=== PATIENT | female | born 1995 | race African-American/Black ===

== ENCOUNTER 2021-09-17 09:27 | Emergency (ER) | payer MEDICAID ==
[~2021-09-17] VITALS: Ht 175.3 cm; Wt 109.0 kg
[2021-09-17 10:23] LABS: EOSINOPHILS % 2.3 % (0.0-5.0); HEMOGLOBIN. 12.9 g/dL (12.0-16.0); LYMPHOCYTES % 32.7 % (20.0-50.0); MEAN CORPUSCULAR HEMOGLOBIN 28.2 pg (28.0-32.0); MEAN PLATELET VOLUME 8.1 fl (7.4-10.4); MONOCYTES % 8.4 % (2.0-8.0); NEUTROPHILS % 55.6 % (40.0-76.0); PLATELET 291 x1000/uL (130-400); RED BLOOD CELL COUNT 4.58 mill/uL (4.2-5.4); RED CELL DISTRIBUTION WIDTH 13.9 % (11.6-14.6)
[2021-09-17 10:29] LABS: CHLORIDE 108 mEq/L (98-107)
[2021-09-17 10:37] LABS: ETHANOL BLOOD < 10 mg/dL
[2021-09-17 10:56] LABS: HCG SCREEN NEGATIVE
[2021-09-17 12:01] LABS: CLARITY URINE CLEAR (CLEAR); COLOR URINE YELLOW (YELLOW); KETONES URINE NEGATIVE (NEGATIVE); LEUKOCYTE ESTERASE URINE NEGATIVE (NEGATIVE); NITRITE URINE NEGATIVE (NEGATIVE); OCCULT BLOOD URINE NEGATIVE (NEGATIVE); PH URINE 7.5 (4.5-8.0); PROTEIN URINE NEGATIVE (NEGATIVE); SPECIFIC GRAVITY URINE 1.005 (1.005-1.030); UROBILINOGEN URINE 0.2 E.U./dL (0.2-1.0)
[2021-09-17 12:16] LABS: *AMPHETAMINES SCREEN URINE NEGATIVE (NEGATIVE); *BARBITURATES SCREEN URINE NEGATIVE (NEGATIVE); *BENZODIAZEPINES SCREEN URINE NEGATIVE (NEGATIVE); *COCAINE SCREEN URINE NEGATIVE (NEGATIVE); CANNABINOID URINE SCREEN NEGATIVE (NEGATIVE); METHADONE URINE SCREEN NEGATIVE (NEGATIVE); OPIATES URINE SCREEN NEGATIVE (NEGATIVE); PHENCYCLIDINE URINE SCREEN NEGATIVE (NEGATIVE)
[2021-09-17] MEDS ORDERED: ACETAMINOPHEN 325MG TABLET PO ONE (14:30)
[2021-09-17] MEDS ORDERED: ZOLPIDEM TARTRATE 5MG TABLET PO ONE (22:15)
[2021-09-18] MEDS ORDERED: OLANZAPINE 2.5MG TABLET PO SCH (09:00)
[2021-09-18] MEDS ORDERED: DIPHENHYDRAMINE 50MG CAPSULE PO NR (12:30)
[2021-09-18] MEDS ORDERED: HALOPERIDOL 5MG TABLET PO NR (12:30)
[2021-09-18 13:30] VITALS: BP 136/91
[2021-09-18] MEDS ORDERED: OLANZAPINE 10MG TABLET PO SCH (21:00)
== END 2021-09-18 13:58 ==
LOC: ER 09:27
DX: F25.9 Schizoaffective disorder, unspecified (principal); F17.210 Nicotine dependence, cigarettes, uncomplicated; R45.851 Suicidal ideations; Z59.00 Homelessness unspecified
CPT/HCPCS: 36415; 80053; 80305; 80307; 80320; 80329; 81003; 84703; 85025; 99285; C9803; J1630; U0003; U0005; Q0163; G0480